=== PATIENT | male | born 1960 | race Caucasian/White ===

== ENCOUNTER 2017-06-15 17:39 | Emergency (ER) | payer OTHER ==
[~2017-06-15] VITALS: Ht 167.6 cm; Wt 59.0 kg
[2017-06-15] MEDS ORDERED: VERAPAMIL ER240 MG PO (18:02)
[2017-06-15] MEDS ORDERED: LISINOPRIL10 MG PO (18:02)
[2017-06-15] MEDS ORDERED: PRILOSEC OTC20 MG PO (18:02)
[2017-06-15] MEDS ORDERED: TRAMADOL HCL50 MG PO (19:27)
[2017-08-17] MEDS ORDERED: ACID CONTROL150 MG PO (23:08)
[2017-08-17] MEDS ORDERED: KETOROLAC TROME10 MG PO (23:10)
== END 2017-06-15 19:44 | disposition home or self-care (01) ==
LOC: ED 17:39
DX: S20.211A Contusion of right front wall of thorax, initial encounter (principal); J44.9 Chronic obstructive pulmonary disease, unspecified; I10 Essential (primary) hypertension; F17.200 Nicotine dependence, unspecified, uncomplicated; Z88.5 Allergy status to narcotic agent; Z79.899 Other long term (current) drug therapy; X58.XXXA Exposure to other specified factors, initial encounter
CPT/HCPCS: 71046; 99283

== ENCOUNTER 2017-06-21 11:16 | Emergency (ER) | payer OTHER ==
[~2017-06-21] VITALS: Ht 167.6 cm; Wt 59.0 kg
[~2017-06-21 11:16] MED LIST: LISINOPRIL10 MG PO; PRILOSEC OTC20 MG PO; TRAMADOL HCL50 MG PO; VERAPAMIL ER240 MG PO
[2017-06-21] MEDS ORDERED: SYMBICORT 16010.2 GM INH ×2 (11:32→12:25)
[2017-06-21] MEDS ORDERED: LISINOPRIL10 MG PO (12:25)
[2017-06-21] MEDS ORDERED: VERAPAMIL HCL360 MG PO (12:25)
[2017-08-17] MEDS ORDERED: ACID CONTROL150 MG PO (23:08)
[2017-08-17] MEDS ORDERED: KETOROLAC TROME10 MG PO (23:10)
== END 2017-06-21 12:55 | disposition home or self-care (01) ==
LOC: ED 11:16
DX: Z76.0 Encounter for issue of repeat prescription (principal); J44.9 Chronic obstructive pulmonary disease, unspecified; I10 Essential (primary) hypertension; F17.200 Nicotine dependence, unspecified, uncomplicated; Z88.5 Allergy status to narcotic agent; Z79.899 Other long term (current) drug therapy
CPT/HCPCS: 99283

== ENCOUNTER → 2017-08-17 | Emergency (ER) | payer OTHER ==
[~2017-08-17] VITALS: Ht 167.6 cm; Wt 59.0 kg
[~2017-08-17] MED LIST changes: +ACID CONTROL150 MG PO; +CLARITIN10 M2 PO; +KETOROLAC TROME10 MG PO; +SYMBICORT 16010.2 GM INH; +VERAPAMIL HCL360 MG PO
== END ==
LOC: ED 22:53
DX: M79.671 Pain in right foot (principal); M79.672 Pain in left foot; J44.9 Chronic obstructive pulmonary disease, unspecified; I10 Essential (primary) hypertension; F17.200 Nicotine dependence, unspecified, uncomplicated; Z88.5 Allergy status to narcotic agent; Z88.6 Allergy status to analgesic agent; Z79.899 Other long term (current) drug therapy
CPT/HCPCS: 96372; 99282; J1885

== ENCOUNTER 2017-08-29 22:49 | Emergency (ER) | payer OTHER ==
[~2017-08-29] VITALS: Ht 167.6 cm; Wt 59.0 kg
[~2017-08-29 22:49] MED LIST changes: -CLARITIN10 M2 PO
[2017-08-29] MEDS ORDERED: CLARITIN10 M2 PO (23:01)
== END 2017-08-30 00:47 | disposition home or self-care (01) ==
LOC: ED 22:49
DX: R42 Dizziness and giddiness (principal); J44.9 Chronic obstructive pulmonary disease, unspecified; I10 Essential (primary) hypertension; F17.200 Nicotine dependence, unspecified, uncomplicated; Z88.5 Allergy status to narcotic agent; Z79.899 Other long term (current) drug therapy
CPT/HCPCS: 70450; 71045; 80053; 81001; 85025; 99284; G0480; J7030

== ENCOUNTER 2018-04-09 21:59 | Emergency (ER) | payer OTHER ==
[~2018-04-09] VITALS: Ht 167.6 cm; Wt 61.2 kg
[~2018-04-09 21:59] MED LIST changes: +CLARITIN10 M2 PO
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
[2018-04-09] MEDS ORDERED: VENTOLIN HFA18 GM INH (23:21)
[2018-04-10] MEDS ORDERED: ACETAMINOPHEN-1 EAC1 PO (00:43)
[2018-04-10] MEDS ORDERED: TRAMADOL HCL50 MG PO (00:59)
== END 2018-04-10 01:10 | disposition home or self-care (01) ==
LOC: ED 21:59
DX: S70.12XA Contusion of left thigh, initial encounter (principal); V29.9XXA Motorcycle rider (driver) (passenger) injured in unspecified traffic accident, initial encounter; J44.9 Chronic obstructive pulmonary disease, unspecified; I10 Essential (primary) hypertension; F17.200 Nicotine dependence, unspecified, uncomplicated; Z88.5 Allergy status to narcotic agent; Z88.8 Allergy status to other drugs, medicaments and biological substances; Z79.899 Other long term (current) drug therapy
CPT/HCPCS: 73552; 99283

== ENCOUNTER 2018-04-22 05:25 | Emergency (ER) | payer OTHER ==
[~2018-04-22] VITALS: Ht 167.6 cm; Wt 65.8 kg
[~2018-04-22 05:25] MED LIST changes: +ACETAMINOPHEN-1 EAC1 PO; +VENTOLIN HFA18 GM INH
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
[2018-04-22] MEDS ORDERED: ALLEGRA ALLERG180 MG PO (05:33)
[2018-04-22] MEDS ORDERED: PREDNISONE20 MG PO (06:36)
== END 2018-04-22 07:05 | disposition home or self-care (01) ==
LOC: ED 05:25
DX: T78.3XXA Angioneurotic edema, initial encounter (principal); J44.9 Chronic obstructive pulmonary disease, unspecified; I10 Essential (primary) hypertension; F17.200 Nicotine dependence, unspecified, uncomplicated; Z88.5 Allergy status to narcotic agent; Z88.8 Allergy status to other drugs, medicaments and biological substances; Z79.899 Other long term (current) drug therapy
CPT/HCPCS: 96374; 96375; 99283-25; J1200; J2930

== ENCOUNTER 2018-07-31 12:23 | Emergency (ER) | payer OTHER ==
[~2018-07-31] VITALS: Ht 167.6 cm; Wt 65.8 kg
[~2018-07-31 12:23] MED LIST changes: +ALLEGRA ALLERG180 MG PO; +PREDNISONE20 MG PO
--- NOTE | 2018-07-31 22:42 | EKG ---
[facility] [address] [facility] [place] [address] Signed Normal sinus rhythm with sinus arrhythmia Normal ECG No previous ECGs available Confirmed by ITZ MOTT MD ([id number]) on 07/31/2018 10:42:24 PM Electronically Signed By: ITZ MOTT MD 07/31/18 2242 PATIENT NAME: ZITA REID SR Electrocardiogram DATE OF : 64 PHYSICIAN: ITZ MOTT MD REPORT #: [id number] REPORT IS CONFIDENTIAL AND NOT TO BE RELEASED WITHOUT AUTHORIZATION
== END 2018-07-31 15:00 | disposition home or self-care (01) ==
LOC: ED 12:23
DX: R45.89 Other symptoms and signs involving emotional state (principal); J44.9 Chronic obstructive pulmonary disease, unspecified; I10 Essential (primary) hypertension; F17.200 Nicotine dependence, unspecified, uncomplicated; Z88.5 Allergy status to narcotic agent; Z79.899 Other long term (current) drug therapy
CPT/HCPCS: 71045; 80053; 83735; 84484; 85025; 93005; 93010; 99284-25; 99406

== ENCOUNTER 2018-12-14 10:20 | Emergency (ER) | payer OTHER ==
[~2018-12-14] VITALS: Ht 167.6 cm; Wt 72.6 kg
[2018-12-14] MEDS ORDERED: LOSARTAN POTASS50 MG PO (10:45)
== END 2018-12-14 10:47 | disposition home or self-care (01) ==
LOC: ED 10:20
DX: R05 Cough (principal)

== ENCOUNTER 2019-10-11 20:46 | Emergency (ER) | payer BC ==
[~2019-10-11] VITALS: Ht 167.6 cm; Wt 72.6 kg
[~2019-10-11 20:46] MED LIST changes: +LOSARTAN POTASS50 MG PO
--- NOTE | 2019-10-12 12:07 | EKG ---
[facility] [address] [facility] [place], [place] [address] Signed Normal sinus rhythm with sinus arrhythmia Normal ECG When compared with ECG of 31-JUL-2018 13:16, No significant change was found Confirmed by DANIELLA SCOTT DO ([id number]) on 10/12/2019 12:07:29 PM Electronically Signed By: DANIELLA SCOTT DO 10/12/19 1207 PATIENT NAME: LISE REIDSarah DEE Electrocardiogram DATE OF : 64 PHYSICIAN: DANIELLA SCOTT DO REPORT #: [id number] REPORT IS CONFIDENTIAL AND NOT TO BE RELEASED WITHOUT AUTHORIZATION
== END 2019-10-11 23:54 | disposition home or self-care (01) ==
LOC: ED 20:46
DX: I10 Essential (primary) hypertension (principal); J44.9 Chronic obstructive pulmonary disease, unspecified; F17.200 Nicotine dependence, unspecified, uncomplicated; Z88.5 Allergy status to narcotic agent; Z88.6 Allergy status to analgesic agent; Z79.899 Other long term (current) drug therapy
CPT/HCPCS: 71045; 80053; 83735; 84484; 85025; 93005; 93010; 99284-25

== ENCOUNTER 2020-06-12 08:22 | Emergency (ER) | payer BC ==
[~2020-06-12] VITALS: Ht 167.6 cm; Wt 72.6 kg
[2020-06-12] MEDS ORDERED: AMLODIPINE BESYL5 MG PO (08:36)
[2020-06-12] MEDS ORDERED: HYDROCODON-ACE1 EA10 PO (09:46)
== END 2020-06-12 09:56 | disposition home or self-care (01) ==
LOC: ED 08:22
DX: S20.212A Contusion of left front wall of thorax, initial encounter (principal); W22.8XXA Striking against or struck by other objects, initial encounter; J44.9 Chronic obstructive pulmonary disease, unspecified; J45.909 Unspecified asthma, uncomplicated; I10 Essential (primary) hypertension; F17.200 Nicotine dependence, unspecified, uncomplicated; Z88.8 Allergy status to other drugs, medicaments and biological substances; Z88.5 Allergy status to narcotic agent; Z79.899 Other long term (current) drug therapy
CPT/HCPCS: 71101; 99283-25

== ENCOUNTER 2020-08-12 11:53 | Emergency (ER) | payer BC ==
[~2020-08-12] VITALS: Ht 167.6 cm; Wt 77.1 kg
[~2020-08-12 11:53] MED LIST changes: +AMLODIPINE BESYL5 MG PO; +HYDROCODON-ACE1 EA10 PO
[2020-08-12] MEDS ORDERED: VERAPAMIL ER180 MG PO (13:27)
[2020-08-12] MEDS ORDERED: HYDROCODON-ACE1 EA10 PO (13:35)
[2020-08-12] MEDS ORDERED: LIDODERM1 EACH TD (13:35)
== END 2020-08-12 13:53 | disposition home or self-care (01) ==
LOC: ED 11:53
DX: R07.89 Other chest pain (principal); J44.9 Chronic obstructive pulmonary disease, unspecified; I10 Essential (primary) hypertension; F17.200 Nicotine dependence, unspecified, uncomplicated; Z88.5 Allergy status to narcotic agent; Z88.8 Allergy status to other drugs, medicaments and biological substances; Z79.899 Other long term (current) drug therapy
CPT/HCPCS: 71101; 96372; 99284-25; J1885

== ENCOUNTER 2020-09-01 09:21 | Emergency (ER) | payer BC ==
[~2020-09-01] VITALS: Ht 167.6 cm; Wt 77.1 kg
[~2020-09-01 09:21] MED LIST changes: +LIDODERM1 EACH TD; +VERAPAMIL ER180 MG PO
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
[2020-09-01] MEDS ORDERED: PRILOSEC OTC20 MG PO (09:36)
[2020-09-01] MEDS ORDERED: HYDROCODON-ACE1 EA10 PO (11:18)
== END 2020-09-01 11:32 | disposition home or self-care (01) ==
LOC: ED 09:21
DX: S16.1XXA Strain of muscle, fascia and tendon at neck level, initial encounter (principal); S29.012A Strain of muscle and tendon of back wall of thorax, initial encounter; V49.9XXA Car occupant (driver) (passenger) injured in unspecified traffic accident, initial encounter; J44.9 Chronic obstructive pulmonary disease, unspecified; J45.909 Unspecified asthma, uncomplicated; I10 Essential (primary) hypertension; F17.200 Nicotine dependence, unspecified, uncomplicated; Z88.5 Allergy status to narcotic agent; Z88.8 Allergy status to other drugs, medicaments and biological substances; Z79.899 Other long term (current) drug therapy
CPT/HCPCS: 72040; 72070; 99284-25

== ENCOUNTER 2021-01-25 02:28 | Emergency (ER) | payer BC ==
[~2021-01-25] VITALS: Ht 167.6 cm; Wt 77.1 kg
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
[2021-01-25] MEDS ORDERED: AMLODIPINE BESY10 MG PO (02:40)
--- NOTE | 2021-01-25 20:02 | EKG ---
[facility] [address] [facility] [place], [place] [address] Signed Normal sinus rhythm Normal ECG When compared with ECG of 25-JAN-2021 02:32, (Unconfirmed) No significant change was found Confirmed by NANDO LOPES MD ([id number]) on 01/25/2021 8:02:32 PM Electronically Signed By: NANDO LOPES MD 01/25/212001 PATIENT NAME: ZITA REID Electrocardiogram DATE OF : 64 PHYSICIAN: NANDO LOPES MD REPORT #: [id number] REPORT IS CONFIDENTIAL AND NOT TO BE RELEASED WITHOUT AUTHORIZATION
--- NOTE | 2021-01-25 20:02 | EKG ---
[facility] [address] [facility] [place], [place] [address] Signed Normal sinus rhythm Nonspecific ST abnormality Abnormal ECG When compared with ECG of 11-OCT-2019 22:42, No significant change was found Confirmed by NANDO LOPES MD ([id number]) on 01/25/2021 8:02:04 PM Electronically Signed By: NANDO LOPES MD 01/25/212001 PATIENT NAME: JEANETTEZITASarah DEE Electrocardiogram DATE OF : 64 PHYSICIAN: NANDO LOPES MD REPORT #: [id number] REPORT IS CONFIDENTIAL AND NOT TO BE RELEASED WITHOUT AUTHORIZATION
== END 2021-01-25 06:26 | disposition home or self-care (01) ==
LOC: ED 02:28
DX: I10 Essential (primary) hypertension (principal); J44.9 Chronic obstructive pulmonary disease, unspecified; F17.200 Nicotine dependence, unspecified, uncomplicated; Z88.5 Allergy status to narcotic agent; Z88.8 Allergy status to other drugs, medicaments and biological substances; Z79.899 Other long term (current) drug therapy
CPT/HCPCS: 80053; 83735; 84484; 85025; 93005; 93010; 99283-25

== ENCOUNTER 2021-08-03 07:00 | Day surgery (SDC) | payer BC ==
[~2021-08-03] VITALS: Ht 167.6 cm; Wt 79.5 kg
[~2021-08-03 07:00] MED LIST changes: +AMLODIPINE BESY10 MG PO; +AVAPRO150 MG PO; +COZAAR50 MG PO; +EQ ALLERGY & S1 EACH PO; +FLONASE ALLERG9.9 ML NAS; +MEN'S 50 PLUS1 EACH PO
--- NOTE | 2021-08-03 09:30 | NUR ---
08/03/21 0930 Cass Peres 0915- PT TO PACU IN LL POSITION. EYES CLOSED. SNORING. JAW THRUST NEEDED TO PROMOTE ADEQUATE VENTILLATION. SPO2 >95% ON 6 L O2 VIA SIMPLE MASK. PT REACTIVE TO VERBAL AND TACTILE STIMULI. 0923- PT OPENS EYES TO VOICE AND FOLLOWS COMMANDS. BREATHING EASY AND UNLABORED WITHOUT JAW THRUST. SPO2 >95%. O2 TITRATED DOWN TO ROOM AIR. PT REPORTS 8/10 PAIN. PT ENCOURAGED TO PASS GAS AND EDUCATED ABOUT POC FOR PACU. 0930- PT REQUESTING TO SIT UP AND WALK. HOB ELEVATED. PT DENIES DIZZINESS OR NAUSEA. PT TALKING WITH MD AT BEDSIDE APPROPRIATELY. SPO2 >95% ON ROOM AIR. PT PASSING SOME GAS.
--- NOTE | 2021-08-04 06:04 | OR ---
[facility] [address] [place], [place] [address] Signed DATE OF OPERATION: 08/03/2021 SURGEON: Otto Parikh MD PREOPERATIVE DIAGNOSES: 1. Intermittent rectal bleeding after bowel movements. 2. Change in bowel habits with multiple loose stools. 3. Left lower quadrant pressure/pain. POSTOPERATIVE DIAGNOSES: 1. Moderate sigmoid diverticulosis. 2. Moderate internal and external hemorrhoids. PROCEDURE: Colonoscopy with random cold biopsies. ESTIMATED BLOOD LOSS: None. INDICATIONS: Zita is a 61-year-old gentleman asked to see me for followup colonoscopy. While living in [place], he underwent a colonoscopy in 2014, he was 53 years old. He has intermittent rectal bleeding, particularly when he wipes after bowel movements. He is now describing a change in bowel habits, multiple loose frequent stools in the morning. He goes to work at 3:00 p.m. and seems to do fine once he is cleaned out. He has no family history of colon cancer or polyps. He also describes some left lower quadrant pressure more so than pain. He has no family history of inflammatory bowel disease. In the office, I had given him a pamphlet on colonoscopy. He understands the nature of that test. There is risk including, but not limited to gas bloating, crampy abdominal pain, bleeding, perforation requiring surgery, and missed diagnosis. In addition, he has a history of tachycardia requiring verapamil while living in [place]. He is still on verapamil. He said he never went to see a fulfillment mail clerk. He continues to smoke marijuana each night after work to help relax. He is known to have COPD and a raspy voice. He also likes a few beers every day. In that regard, we did ask for an anesthesia provider to help us with increased monitoring and sedation with propofol. He had expressed understanding and wished to proceed. PROCEDURE NOTE: Zita was taken into our endoscopy suite and placed in the left lateral decubitus position. He was given monitored anesthesia care with propofol per our nurse Electronically Signed By: OTTO PARIKH MD 08/04/21 0604 PATIENT NAME: ZITA REID OPERATIVE REPORT DATE OF : 64 REPORT #: [id number] PHYSICIAN: OTTO PARIKH MD PCP: JERAD CASTANON MD REPORT IS CONFIDENTIAL AND NOT TO BE RELEASED WITHOUT AUTHORIZATION [facility] [address] [place], [place] [address] Signed site director. A digital rectal exam was performed and he does have small to moderate circumferential external hemorrhoids. He has good sphincter tone. His prostate is moderately indurated and mild to moderately enlarged. The adult colonoscope had been introduced and advanced all around into the cecum under direct visualization of the camera. It took some extra propofol as we traveled through the sigmoid colon. We found that he does have moderate sized diverticula in the sigmoid colon. They were moderate in size, moderate in number, and scattered about. Once we reached the cecum, we could easily see his appendiceal orifice and the ileocecal valve. We withdrawn the scope. Pictures were taken throughout for photodocumentation. We saw no inflammatory changes whatsoever throughout the entire colon. We took a couple of cold biopsies randomly in the colon for pathologic review. The rectum itself was unremarkable. Upon retroflexion of scope, he does have moderate beefy internal hemorrhoids. I am sure this is the source of his intermittent rectal bleeding. After this, the gas was suctioned out and colonoscope removed. Zita tolerated the procedure quite well. RECOMMENDATIONS: I will see Zita back in my office in 7 to 14 days to review his results. We will also review the diverticulosis and hemorrhoids. Otto Parikh MD ALB/MODL /[id number] cc: MD Otto Whelan MD Copies: OTTO PARIKH MD ~ Electronically Signed By: OTTO PARIKH MD 08/04/21 0604 PATIENT NAME: ZITA REID OPERATIVE REPORT DATE OF : 64 REPORT #: [id number] PHYSICIAN: OTTO PARIKH MD PCP: JERAD CASTANON MD REPORT IS CONFIDENTIAL AND NOT TO BE RELEASED WITHOUT AUTHORIZATION
--- NOTE | 2021-08-05 18:04 | PATH ---
[facility] [address] [place], [place] [address] Signed SPECIMEN(S): A RANDOM COLON BIOPSY SPECIMEN SOURCE: A. RANDOM COLON BIOPSY CLINICAL HISTORY: Colonoscopy. History of change in bowel habits, rectal bleeding. Post: Diverticulosis, internal/external hemorrhoids. FINAL PATHOLOGIC DIAGNOSIS: Colon, random, biopsy: - Intestinal spirochetosis. COMMENT: A Warthin-Starry stain (with appropriately staining controls) highlights spirochetes on the epithelial surface, supporting the above diagnosis. There is no active or chronic colitis. NAL:cml:C2NR MICROSCOPIC EXAMINATION: Histologic sections of all submitted blocks are examined by light microscopy. These findings, together with the gross examination, support the pathologic diagnosis. GROSS DESCRIPTION: The specimen, labeled "RR, random colon biopsy," is received in formalin and consists of two andrade soft tissue fragments that measure 0.2 cm in greatest dimension. The specimen is entirely submitted in cassette (A1). JS (under the direct supervision of a pathologist) The Gross Description was prepared using a voice recognition system. The report was reviewed for accuracy; however, sound-alike word errors, addition and/or deletions may occur. If there is any question about this report, please contact Client Services. ADDITIONAL NOTES: Immunohistochemical and/or in situ hybridization studies were performed on this case with the appropriate positive controls that react as expected. This test was developed and its performance characteristics determined by [facility]. It has not been cleared or approved by the U.S. Food and Drug Administration. The FDA has determined that PATIENT NAME: ZITA REID PATHOLOGY DATE OF : 64 REPORT #: [id number] PHYSICIAN: FELISA ANGEL PCP: JERAD CASTANON MD REPORT IS CONFIDENTIAL AND NOT TO BE RELEASED WITHOUT AUTHORIZATION [facility] [address] [place] [id number] Signed such clearance or approval is not necessary. This test is used for clinical purposes. It should not be regarded as investigational or for research. [facility] is certified under the Clinical Laboratory Improvement Amendments of 1988 (CLIA) as qualified to perform high complexity clinical laboratory testing. This assay has not been validated for specimens that have been decalcified. The technical component was performed by [facility], [address] [place] [address] (Presser Cotton Ginning: Shyam Hunt M.D.; CLIA#[id number]). [facility], [address] [place] [address] (CLIA# [id number]). PERFORMING LABORATORY: The technical component was performed by [facility], [address] [place] [address] (CLIA# [id number]). Professional interpretation [facility], [address] [place] [address] (CLIA# [id number]). Diagnostician: Vania Duncan MD Pathologist Electronically Signed 08/05/2021 Copies: ~ PATIENT NAME: ZITA REID PATHOLOGY DATE OF : 64 REPORT #: [id number] PHYSICIAN: FELISA PATHOLOGY PCP: JERAD CASTANON MD REPORT IS CONFIDENTIAL AND NOT TO BE RELEASED WITHOUT AUTHORIZATION
== END 2021-08-03 10:00 | disposition home or self-care (01) ==
LOC: DS 07:00 → OPS 07:00
PROVIDERS: ATTEND Colon & Rectal Surgery
PROC: 0DBG8ZX Excision of Left Large Intestine, Via Natural or Artificial Opening Endoscopic, Diagnostic (ICD-10-PCS; principal; 2021-08-03 09:00)
DX: A69.8 Other specified spirochetal infections (principal); K57.30 Diverticulosis of large intestine without perforation or abscess without bleeding; K64.8 Other hemorrhoids; K64.4 Residual hemorrhoidal skin tags; K21.9 Gastro-esophageal reflux disease without esophagitis; J44.9 Chronic obstructive pulmonary disease, unspecified; I47.1 Supraventricular tachycardia; I10 Essential (primary) hypertension; Z87.891 Personal history of nicotine dependence; Z88.6 Allergy status to analgesic agent; Z88.5 Allergy status to narcotic agent; Z88.8 Allergy status to other drugs, medicaments and biological substances
CPT/HCPCS: J2704; J7121

== ENCOUNTER 2021-10-30 17:05 | Emergency (ER) | payer BC ==
[~2021-10-30] VITALS: Ht 167.6 cm; Wt 79.4 kg
--- NOTE | ~2021-10-30 | EKG ---
[facility] [address] [facility] [place], [place] [address] Draft EK completed, results pending confirmation PATIENT NAME: JEANETTEZITA Electrocardiogram DATE OF : 64 PHYSICIAN: PRELIMINARY REPORT #: [id number] REPORT IS CONFIDENTIAL AND NOT TO BE RELEASED WITHOUT AUTHORIZATION
[2021-10-30] MEDS ORDERED: LOSARTAN-HCTZ1 EACH PO (17:25)
== END 2021-10-30 22:33 | disposition home or self-care (01) ==
LOC: ED 17:05
DX: I10 Essential (primary) hypertension (principal); M54.6 Pain in thoracic spine; J44.9 Chronic obstructive pulmonary disease, unspecified; J45.909 Unspecified asthma, uncomplicated; F17.200 Nicotine dependence, unspecified, uncomplicated; Z88.5 Allergy status to narcotic agent; Z88.8 Allergy status to other drugs, medicaments and biological substances; Z79.899 Other long term (current) drug therapy
CPT/HCPCS: 36415; 71045; 71275; 74174; 80053; 83735; 84484; 85025; 85610; 93005; 93010; 99285-25; Q9967

== ENCOUNTER 2022-01-21 20:58 | Emergency (ER) | payer BC ==
[~2022-01-21] VITALS: Ht 165.1 cm; Wt 76.0 kg
[~2022-01-21 20:58] MED LIST changes: +LOSARTAN-HCTZ1 EACH PO
[2022-01-21] MEDS ORDERED: CLONIDINE1 EAC1 TD (21:18)
[2022-01-21] MEDS ORDERED: CLONIDINE1 EAC2 TD (21:18)
[2022-01-21] MEDS ORDERED: AMOX TR-K CLV1 EAC1 PO (21:18)
[2022-01-21] MEDS ORDERED: PRILOSEC OTC20 MG PO (21:19)
--- NOTE | 2022-01-22 12:26 | EKG ---
[facility] [address] [facility] [place] [facility] [place], [place] [address] Signed Normal sinus rhythm Junctional ST depression, probably normal Borderline ECG When compared with ECG of 30-OCT-2021 17:11, No significant change was found Confirmed by NANDO LOPES MD ([id number]) on 01/22/2022 12:26:01 PM Electronically Signed By: NANDO LOPES MD 01/22/22 1226 PATIENT NAME: ZIAT REID Electrocardiogram DATE OF : 64 PHYSICIAN: NANDO LOPES MD REPORT #: [id number] REPORT IS CONFIDENTIAL AND NOT TO BE RELEASED WITHOUT AUTHORIZATION
== END 2022-01-21 22:07 | disposition home or self-care (01) ==
LOC: ED 20:58
DX: R07.89 Other chest pain (principal); I10 Essential (primary) hypertension; J44.9 Chronic obstructive pulmonary disease, unspecified; F17.200 Nicotine dependence, unspecified, uncomplicated; Z88.8 Allergy status to other drugs, medicaments and biological substances; Z88.5 Allergy status to narcotic agent; Z79.899 Other long term (current) drug therapy
CPT/HCPCS: 36415; 71045; 80053; 83735; 84484; 85025; 93005; 93010; 99285-25

== ENCOUNTER 2022-05-07 17:12 | Emergency (ER) | payer BC ==
[~2022-05-07] VITALS: Ht 165.1 cm; Wt 84.0 kg
[~2022-05-07 17:12] MED LIST changes: +AMOX TR-K CLV1 EAC1 PO; +CLONIDINE1 EAC1 TD; +CLONIDINE1 EAC2 TD
[2022-05-07] MEDS ORDERED: CLONIDINE HCL0.1 MG PO (17:29)
== END 2022-05-07 19:05 | disposition home or self-care (01) ==
LOC: ED 17:12
DX: I10 Essential (primary) hypertension (principal); J44.9 Chronic obstructive pulmonary disease, unspecified; F17.200 Nicotine dependence, unspecified, uncomplicated; Z88.5 Allergy status to narcotic agent; Z88.8 Allergy status to other drugs, medicaments and biological substances; Z79.899 Other long term (current) drug therapy
CPT/HCPCS: 99283

== ENCOUNTER 2022-05-13 18:53 | Emergency (ER) | payer BC ==
[~2022-05-13] VITALS: Ht 165.1 cm; Wt 83.9 kg
[~2022-05-13 18:53] MED LIST changes: +CLONIDINE HCL0.1 MG PO
--- OUTSIDE RECORDS SUMMARY | 2022-05-13 18:54 | XMS ---
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 - Patient with suicidal and/or homicidal ideations eloped. - Patient eloped with IV in place. Details: PATIENT LWBS CRITERIA MET - [facility] - 2 Visits in 30 Days CARE PROVIDERS ALLEN [facility] 01/26/2021-Current PHONE: Unknown KENJI WHEELER Physician Saw Handle Assembler 04/10/2018-Current PHONE: [phone] AUNDREA ALLISON [facility] Current PHONE: [phone] Fidelia has no Care Guidelines for this patient. Winifred VISIT COUNT (12 MO.) 5 NUPUR Banda TOTAL 5 NOTE: Visits indicate total known visits. ED/UCC VISIT TRACKING (12 MO.) 05/13/2022 18:53 [facility] [place] TYPE: Emergency COMPLAINT: - POSS HYPERTENSION 05/07/2022 17:12 [facility] [place] TYPE: Emergency COMPLAINT: - BLOOD PRESSURE PROBLEM DIAGNOSES: - Essential (primary) hypertension - Nicotine dependence, unspecified, uncomplicated - Chronic obstructive pulmonary disease, unspecified - Other terminal gauger (current) drug therapy - Allergy status to other drugs, medicaments and biological substances - Allergy status to narcotic agent 01/21/2022 20:59 [facility] [place] TYPE: Emergency COMPLAINT: - HIGH BLOOD PRESSURE DIAGNOSES: - Essential (primary) hypertension - Allergy status to narcotic agent - Chronic obstructive pulmonary disease, unspecified - Other residential (current) drug therapy - Other chest pain - Nicotine dependence, unspecified, uncomplicated - Allergy status to other drugs, medicaments and biological substances 10/31/2021 12:17 [facility] [place] TYPE: Emergency COMPLAINT: - HIGH B/P, DIZZY, SWEATING 10/30/2021 17:06 [facility] [place] TYPE: Emergency COMPLAINT: - HIGH BLOOD PRESSURE DIAGNOSES: - Allergy status to other drugs, medicaments and biological substances - Unspecified asthma, uncomplicated - Allergy status to narcotic agent - Essential (primary) hypertension - Nicotine dependence, unspecified, uncomplicated - Pain in thoracic spine - Other residential (current) drug therapy - Chronic obstructive pulmonary disease, unspecified INPATIENT VISIT TRACKING (12 MO.) No inpatient visits to display in this time frame [email or web address]
--- NOTE | 2022-05-14 22:03 | EKG ---
[facility] [address] [facility] [place] [address] Signed Sinus tachycardia Minimal voltage criteria for LVH, may be normal variant ( R in aVL ) Nonspecific ST abnormality Abnormal ECG No previous ECGs available Confirmed by Opal Uriostegui MD () on 05/14/2022 10:03:27 PM Electronically Signed By: OPAL URIOSTEGUI MD 05/14/222202 PATIENT NAME: JEANETTEZITASarah DEE Electrocardiogram DATE OF : 64 PHYSICIAN: OPAL URIOSTEGUI MD REPORT #: [id number] REPORT IS CONFIDENTIAL AND NOT TO BE RELEASED WITHOUT AUTHORIZATION
== END 2022-05-13 19:53 | disposition home or self-care (01) ==
LOC: ED 18:53
DX: I10 Essential (primary) hypertension (principal); J44.9 Chronic obstructive pulmonary disease, unspecified; F17.200 Nicotine dependence, unspecified, uncomplicated; Z88.5 Allergy status to narcotic agent; Z88.8 Allergy status to other drugs, medicaments and biological substances; Z79.899 Other long term (current) drug therapy
CPT/HCPCS: 93005; 93010; 99283-25

== ENCOUNTER 2022-05-16 12:37 | Emergency (ER) | payer BC ==
[~2022-05-16] VITALS: Ht 165.1 cm; Wt 78.0 kg
--- OUTSIDE RECORDS SUMMARY | 2022-05-16 12:46 | XMS ---
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 - Patient with suicidal and/or homicidal ideations eloped. - Patient eloped with IV in place. Details: PATIENT LWBS CRITERIA MET - [facility] - 2 Visits in 30 Days CARE PROVIDERS ALLEN [facility] 01/26/2021-Current PHONE: Unknown KENJI WHEELER Physician Classified Ad Taker 04/10/2018-Current PHONE: [phone] AUNDREA ALLISON [facility] Current PHONE: [phone] Fidelia has no Care Guidelines for this patient. Winifred VISIT COUNT (12 MO.) 6 NUP[facility] Banda TOTAL 6 NOTE: Visits indicate total known visits. ED/UCC VISIT TRACKING (12 MO.) 05/16/2022 12:37 [facility] [place] TYPE: Emergency COMPLAINT: - BLOOD PRESSURE PROBLEM 05/13/2022 18:53 [facility] [place] HKlaudia [place] TYPE: Emergency COMPLAINT: - POSS HYPERTENSION DIAGNOSES: - Allergy status to narcotic agent - Essential (primary) hypertension - Allergy status to other drugs, medicaments and biological substances - Chronic obstructive pulmonary disease, unspecified - Nicotine dependence, unspecified, uncomplicated - Other mcfp (current) drug therapy 05/07/2022 17:12 [facility] [place] Tat[place] TYPE: Emergency COMPLAINT: - BLOOD PRESSURE PROBLEM DIAGNOSES: - 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 10/31/2021 12:17 [facility] [place] TYPE: Emergency COMPLAINT: - HIGH B/P, DIZZY, SWEATING 10/30/2021 17:06 [facility] [place] TYPE: Emergency COMPLAINT: - HIGH BLOOD PRESSURE DIAGNOSES: - Nicotine dependence, unspecified, uncomplicated - Pain in thoracic spine - 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
--- NOTE | 2022-05-16 21:49 | EKG ---
[facility] [address] [place] [address] Signed Normal sinus rhythm Nonspecific T wave abnormality Abnormal ECG When compared with ECG of 13-MAY-2022 18:53, Questionable change in QRS axis ST no longer depressed in Anterior leads Nonspecific T wave abnormality, worse in Inferior leads Confirmed by Opal Uriostegui MD () on 05/16/2022 9:49:37 PM Electronically Signed By: OPAL URIOSTEGUI MD 05/16/22 2149 PATIENT NAME: ZITA REID Electrocardiogram DATE OF : 64 PHYSICIAN: OPAL URIOSTEGUI MD REPORT #: [id number] REPORT IS CONFIDENTIAL AND NOT TO BE RELEASED WITHOUT AUTHORIZATION
== END 2022-05-16 15:46 | disposition home or self-care (01) ==
LOC: ED 12:37
DX: I10 Essential (primary) hypertension (principal); J44.9 Chronic obstructive pulmonary disease, unspecified; F17.200 Nicotine dependence, unspecified, uncomplicated; Z88.5 Allergy status to narcotic agent; Z88.8 Allergy status to other drugs, medicaments and biological substances; Z79.899 Other long term (current) drug therapy
CPT/HCPCS: 36415; 71045; 80053; 83735; 84484; 85025; 93005; 93010; 99285-25

== ENCOUNTER 2022-05-22 01:48 | Emergency (ER) | payer BC ==
[~2022-05-22] VITALS: Ht 165.1 cm; Wt 77.6 kg
--- OUTSIDE RECORDS SUMMARY | 2022-05-22 01:50 | XMS ---
PreManage Notification: ZITA REID Security Vp Events 1 event(s) in the past 18 months Most recent security events: Elopement at [facility] 10/31/2021 12:17 - Patient eloped before treatment completed. - Patient with suicidal and/or homicidal ideations eloped. - Patient eloped with IV in place. Details: PATIENT LWBS CRITERIA MET - [facility] - 2 Visits in 30 Days CARE PROVIDERS ALLEN [facility] 01/26/2021-Current PHONE: Unknown KENJI WHEELER Physician Financial Cost Analyst 04/10/2018-Current PHONE: [phone] AUNDREA ALLISON [facility] Current PHONE: [phone] Fidelia has no Care Guidelines for this patient. Winifred VISIT COUNT (12 MO.) 7 NUPUR Banda TOTAL 7 NOTE: Visits indicate total known visits. ED/UCC VISIT TRACKING (12 MO.) 05/22/2022 01:49 [facility] [place] TYPE: Emergency COMPLAINT: - HEART ISSUE 05/16/2022 12:37 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 [place] TYPE: Emergency COMPLAINT: - POSS HYPERTENSION DIAGNOSES: - Nicotine dependence, unspecified, uncomplicated - Other senior living (current) drug therapy - Allergy status to narcotic agent - Essential (primary) hypertension - Allergy status to other drugs, medicaments and biological substances - Chronic obstructive pulmonary disease, unspecified 05/07/2022 17:12 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 - Allergy status to other drugs, medicaments and biological substances - Allergy status to narcotic agent - Essential (primary) hypertension 01/21/2022 20:59 [facility] [place]laudia [place] TYPE: Emergency COMPLAINT: - HIGH BLOOD PRESSURE DIAGNOSES: - Allergy status to narcotic agent - Chronic obstructive pulmonary disease, unspecified - Other senior living (current) drug therapy - Other chest pain - Nicotine dependence, unspecified, uncomplicated - Allergy status to other drugs, medicaments and biological substances - Essential (primary) hypertension 10/31/2021 12:17 [facility] [place] TYPE: Emergency COMPLAINT: - HIGH B/P, DIZZY, SWEATING 10/30/2021 17:06 [facility] [place] TYPE: Emergency COMPLAINT: - HIGH BLOOD PRESSURE DIAGNOSES: - Unspecified asthma, uncomplicated - Allergy status to narcotic agent - Essential (primary) hypertension - Nicotine dependence, unspecified, uncomplicated - Pain in thoracic spine - Other senior living (current) drug therapy - Chronic obstructive pulmonary disease, unspecified - Allergy status to other drugs, medicaments and biological substances INPATIENT VISIT TRACKING (12 MO.) No inpatient visits to display in this time frame [email or web address]
[2022-05-22] MEDS ORDERED: HYDROXYZINE HCL25 MG PO (01:57)
[2022-05-22] MEDS ORDERED: METOPROLOL SUCC50 MG PO (01:57)
[2022-05-22] MEDS ORDERED: VERAPAMIL ER240 M1 PO (01:59)
[2022-05-22] MEDS ORDERED: HYZAAR 100-251 EACH PO (02:00)
[2022-05-22] MEDS ORDERED: ATIVAN1 MG PO (02:27)
--- NOTE | 2022-05-22 07:54 | EKG ---
[facility] [address] [place] [address] Signed Sinus rhythm with occasional premature ventricular complexes Nonspecific ST abnormality Abnormal ECG When compared with ECG of 16-MAY-2022 12:48, premature ventricular complexes are now present ST more depressed in Lateral leads Nonspecific T wave abnormality, improved in Inferior leads Nonspecific T wave abnormality no longer evident in Lateral leads Confirmed by NANDO LOPES MD ([id number]) on 05/22/2022 7:54:04 AM Electronically Signed By: NANDO LOPES MD 05/22/22 0754 PATIENT NAME: ZITA REID Electrocardiogram DATE OF : 64 PHYSICIAN: NANDO LOPES MD REPORT #: [id number] REPORT IS CONFIDENTIAL AND NOT TO BE RELEASED WITHOUT AUTHORIZATION
== END 2022-05-22 03:15 | disposition home or self-care (01) ==
LOC: ED 01:48
DX: R00.2 Palpitations (principal); E83.42 Hypomagnesemia; J44.9 Chronic obstructive pulmonary disease, unspecified; I10 Essential (primary) hypertension; F17.200 Nicotine dependence, unspecified, uncomplicated; Z88.5 Allergy status to narcotic agent; Z88.8 Allergy status to other drugs, medicaments and biological substances; Z79.899 Other long term (current) drug therapy
CPT/HCPCS: 36415; 80053; 83735; 85025; 93005; 93010; 96365; 96375; 99285-25; J2060; J3475; J7121

== ENCOUNTER 2023-04-14 20:09 | Emergency (ER) | payer OTHER ==
[~2023-04-14] VITALS: Ht 165.1 cm; Wt 85.6 kg
[~2023-04-14 20:09] MED LIST changes: +ATIVAN1 MG PO; +FLOMAX0.4 MG PO; +HYDROXYZINE HCL25 MG PO; +HYZAAR 100-251 EACH PO; +METOPROLOL SUCC50 MG PO; +PROBIOTIC1 EAC2 PO; +ROSUVASTATIN CA20 MG PO; +TYLENOL EXTRA500 MG PO; +VASCEPA1 GM PO; +VERAPAMIL ER240 M1 PO
--- OUTSIDE RECORDS SUMMARY | 2023-04-14 20:16 | XMS ---
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 - Patient eloped before treatment completed. - Patient with suicidal and/or homicidal ideations eloped. Details: PATIENT LWBS CRITERIA MET - [facility] - 2 Visits in 30 Days CARE PROVIDERS ALLEN [facility] 01/26/2021-Current PHONE: Unknown KENJI WHEELER Physician Rn Nursery 04/10/2018-Current PHONE: [phone] -[place]- Dentist: Deposition Reporter [facility] PHONE: [phone] Fidelia has no Care Guidelines for this patient. Winifred VISIT COUNT (12 MO.) 6 NUPUR Banda TOTAL 6 NOTE: Visits indicate total known visits. ED/UCC VISIT TRACKING (12 MO.) 04/14/2023 20:09 [facility] [place] TYPE: Emergency COMPLAINT: - FLANK PAIN 04/09/2023 17:47 [facility] [place] TYPE: Emergency COMPLAINT: - BLOOD IN URINE DIAGNOSES: - Allergy status to analgesic agent - Allergy status to narcotic agent - Allergy status to other drugs, medicaments and biological substances - Chronic obstructive pulmonary disease, unspecified - Essential (primary) hypertension - Gastro-esophageal reflux disease without esophagitis - Hematuria, unspecified - Hydronephrosis with renal and ureteral calculous obstruction - Hyperlipidemia, unspecified - Nicotine dependence, unspecified, uncomplicated - Other detention (current) drug therapy 05/22/2022 01:49 [facility] [place] TYPE: Emergency COMPLAINT: - HEART ISSUE DIAGNOSES: - Allergy status to narcotic agent - Allergy status to other drugs, medicaments and biological substances - Chronic obstructive pulmonary disease, unspecified - Essential (primary) hypertension - Hypomagnesemia - Nicotine dependence, unspecified, uncomplicated - Other detention (current) drug therapy - Palpitations 05/16/2022 12:37 [facility] [place] TYPE: Emergency COMPLAINT: - BLOOD PRESSURE PROBLEM DIAGNOSES: - Allergy status to narcotic agent - Allergy status to other drugs, medicaments and biological substances - Chest pain, unspecified - Chronic obstructive pulmonary disease, unspecified - Essential (primary) hypertension - Nicotine dependence, unspecified, uncomplicated - Other detention (current) drug therapy 05/13/2022 18:53 [facility] [place] TYPE: Emergency COMPLAINT: - POSS HYPERTENSION DIAGNOSES: - Allergy status to narcotic agent - Allergy status to other drugs, medicaments and biological substances - Chronic obstructive pulmonary disease, unspecified - Essential (primary) hypertension - Nicotine dependence, unspecified, uncomplicated - 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
[2023-04-14 20:42] LABS: BASOPHILS 0.5 % (0-2); HEMATOCRIT 41.7 % (35.0-50.0); HEMOGLOBIN 14.7 g/dL (12.0-18.0); LYMPHOCYTES 19.8 % (24-44); MCH 32.6 (27-36); MCHC 35.2 g/dl (30-36); MCV 92.5 fl (81-99); MONOCYTES 9.4 % (0-12); NEUTROPHILS 68.3 % (39-80); PLATELET COUNT 302 K/uL (140-440); RBC 4.51 M/ul (4.3-5.7); RDW 12.9 (10.5-15.0)
[2023-04-14 20:50] LABS: ALBUMIN/GLOBULIN RATIO 0.91 (1.1-2.4); ANION GAP 15.6 (7-21); BILIRUBIN, TOTAL 0.4 ng/dL (0.2-1.0); BUN/CREATININE RATIO 18.05 (6.0-28.6); CALCIUM 9.6 mg/dL (8.5-10.1); CREATININE, SERUM 1.44 mg/dL (0.70-1.30); POTASSIUM 3.6 mmol/L (3.5-5.1); PROTEIN, TOTAL 8.4 g/dL (6.4-8.2)
[2023-04-14 21:20] LABS: BILIRUBIN, URINE NEGATIVE (negative); BLOOD/HGB, URINE NEGATIVE (Negative); KETONE, URINE NEGATIVE (Negative); LEUK ESTERASE, URINE NEGATIVE (negative); NITRITE, URINE NEGATIVE (negative); PH, URINE 5.5 (5-7)
[2023-04-14] MEDS ORDERED: ONDANSETRON ODT8 MG PO (21:26)
[2023-04-14] MEDS ORDERED: PERCOCET 5-3251 EACH PO (21:26)
[2023-04-14] MEDS ORDERED: CIPRO500 MG PO (21:26)
[2023-04-14] MEDS ORDERED: COLACE100 MG PO (21:28)
[2023-04-14 21:52] VITALS: BP 159/89
== END 2023-04-14 21:56 | disposition home or self-care (01) ==
LOC: ED 20:09
PROVIDERS: Family Medicine
DX: N13.2 Hydronephrosis with renal and ureteral calculous obstruction (principal); J44.9 Chronic obstructive pulmonary disease, unspecified; I10 Essential (primary) hypertension; F17.200 Nicotine dependence, unspecified, uncomplicated; Z88.5 Allergy status to narcotic agent; Z88.6 Allergy status to analgesic agent; Z88.8 Allergy status to other drugs, medicaments and biological substances; Z79.899 Other long term (current) drug therapy
CPT/HCPCS: 36415; 74176; 80053; 81003; 85025; 96374; 99284-25; A9270; J1885; J7030

== ENCOUNTER 2025-01-02 13:30 | Emergency (ER) | payer OTHER ==
[~2025-01-02] VITALS: Ht 167.6 cm; Wt 74.2 kg
--- NOTE | ~2025-01-02 | EKG ---
[facility] [address] [place], [place] [address] Draft EKG completed, results pending confirmation PATIENT NAME: ZITA REID Electrocardiogram DATE OF : 64 PHYSICIAN: PRELIMINARY REPORT #: [id number] REPORT IS CONFIDENTIAL AND NOT TO BE RELEASED WITHOUT AUTHORIZATION
[~2025-01-02 13:30] MED LIST changes: +CIPRO500 MG PO; +COLACE100 MG PO; +ONDANSETRON ODT8 MG PO; +PERCOCET 5-3251 EACH PO
[2025-01-02] MEDS ORDERED: TREXALL15 MG PO (13:58)
[2025-01-02] MEDS ORDERED: SODIUM CHLORIDE 0.9% 500 ML IV ONE (14:00)
[2025-01-02 14:24] LABS: BASOPHILS 0.2 % (0.2-1.2); EOSINOPHILS 0.2 % (0.8-7.0); LYMPHOCYTES 1.5 % (21.8-53.1); MCH 32.2 PG (25.7-32.2); MCHC 34.2 g/dL (32.3-36.5); MCV 94.2 fL (79.0-92.2); MONOCYTES 2.5 % (5.3-12.2); NEUTROPHILS 95.3 % (34.0-67.9); RBC 4.66 M/uL (4.63-6.08)
[2025-01-02] MEDS ORDERED: DIPHENOXYLATE/ATROPINE 1 EA TAB PO ONE ×2 (14:30→16:30)
[2025-01-02] MEDS ORDERED: SODIUM CHLORIDE 0.9% 1,000 ML IV ONE (14:30)
[2025-01-02 14:39] LABS: ALT (SGPT) 34.0 U/L (14-59); AST (SGOT) 25.0 U/L (15-37); GLOMERULAR FILTRATION RATE,EST 109.0 mL/min (>60); PROTEIN, TOTAL 7.1 g/dL (6.4-8.2); UREA NITROGEN 18.0 mg/dL (7-18)
[2025-01-02] MEDS ORDERED: MAGNESIUM OXIDE 400 MG TABLET PO ONE (16:30)
[2025-01-02] MEDS ORDERED: POTASSIUM CHLORIDE 10 MEQ TABCR PO ONE (16:30)
[2025-01-02] MEDS ORDERED: MAGNESIUM SULFATE 2 GM/50 ML BAG IV ONE (16:30)
[2025-01-02 16:34] LABS: BLOOD/HGB, URINE NEGATIVE (Negative); KETONE, URINE NEGATIVE (Negative); LEUK ESTERASE, URINE NEGATIVE (negative); NITRITE, URINE NEGATIVE (negative)
[2025-01-02 19:22] VITALS: BP 169/100
== END 2025-01-02 19:23 | disposition home or self-care (01) ==
LOC: ED 13:30
PROVIDERS: Emergency Medicine
DX: R19.7 Diarrhea, unspecified (principal); E83.42 Hypomagnesemia; E87.1 Hypo-osmolality and hyponatremia; J44.89 Other specified chronic obstructive pulmonary disease; I10 Essential (primary) hypertension; F17.200 Nicotine dependence, unspecified, uncomplicated; Z88.5 Allergy status to narcotic agent; Z88.8 Allergy status to other drugs, medicaments and biological substances; Z88.6 Allergy status to analgesic agent; Z79.899 Other long term (current) drug therapy
CPT/HCPCS: 36415; 80053; 81003; 83735; 85025; 93005; 93010; 96361; 96365; 96366; 96375; 99284-25; A9270; J2405; J3475; J7030; J7040

== ENCOUNTER 2025-01-17 22:01 | Emergency (ER) | payer OTHER ==
[~2025-01-17] VITALS: Ht 167.6 cm; Wt 71.6 kg
--- NOTE | ~2025-01-17 | EKG ---
[facility] [address] [place], [place] [address] Draft EK completed, results pending confirmation PATIENT NAME: ZITA REID Electrocardiogram DATE OF : 64 PHYSICIAN: PRELIMINARY REPORT #: [id number] REPORT IS CONFIDENTIAL AND NOT TO BE RELEASED WITHOUT AUTHORIZATION
--- OUTSIDE RECORDS SUMMARY | ~2025-01-17 | XMS | Continuity of Care Document ---
Demographics + + + | Address | [address] | | | [place] [address] | + + + | Preferred Language | Unknown | + + + | Marital Status | Never | + + + | Yazidi Affiliation | Unknown | + + + | Race | White | + + + | Ethnic Group | Not or | + + + Author + + + | Author | [facility] | + + + | Organization | [facility] | + + + | Address | [address] | | | [place] [address] | + + + | Phone | | + + + Care Team Providers + + + + | Care Security Systems Administrator Name | Role | Phone | + + + + Unavailable | Unavailable | + + + + Unavailable | Unavailable | + + + + Allergies No information. Encounters No information. Functional Status No information. Immunizations No information. Medications + + + + | date | description | facility | + + + + | (no date) | ICOSAPENT ETHYL | [facility] | | | | [facility] | + + + + | (no date) | RANITIDINE HCL | [facility] | | | | [facility] | + + + + | (no date) | ACETAMINOPHEN | [facility] | | | | [facility] | + + + + | (no date) | METHOTREXATE SODIUM | [facility] | | | | [facility] | + + + + | (no date) | AMLODIPINE BESYLATE | [facility] | | | | [facility] | + + + + | (no date) | LISINOPRIL | [facility] | | | | [facility] | + + + + | (no date) | OMEPRAZOLE MAGNESIUM | [facility] | | | | [facility] | + + + + | (no date) | LORATADINE | [facility] | | | | [facility] | + + + + | (no date) | ALBUTEROL SULFATE | [facility] | | | | [facility] | + + + + | (no date) | Rosuvastatin Calcium | [facility] | | | | [facility] | + + + + | (no date) | METOPROLOL SUCCINATE | [facility] | | | | [facility] | + + + + | (no date) | CLONIDINE HCL | [facility] | | | | [facility] | + + + + | (no date) | VERAPAMIL HCL | [facility] | | | | [facility] | + + + + | (no date) | VERAPAMIL HCL | [facility] | | | | [facility] | + + + + | (no date) | | [facility] | | | LOSARTAN/HYDROCHLOROTHIAZID | [facility] | | | E | | + + + + | (no date) | hydrOXYzine HCL | [facility] | | | | [facility] | + + + + Problems No information. Procedures No information. Results/Labs +--------+--------+ +---------+--------+---------+ | test | date | facility | value | unit | notes | +--------+--------+ +---------+--------+---------+ + + | Result panel 1 | + + + + + +---------+ + + | WBC # Bld | 2025-01-02 | | 10.15 | (missing) | (missing) | | Auto | 14:20:07 | [facility] | | | | + + + +---------+ + + + + | Result panel 2 | + + + + + +-------+ + + | Lymphocytes | 2025-01-02 | | 1.5 | (missing) | (missing) | | NFr Bld | 14:20:07 | [facility] | | | | | Auto | [facility] | | | | + + + +-------+ + + + + | Result panel 3 | + + + + + +-------+ + + | Monocytes | 2025-01-02 | | 2.5 | (missing) | (missing) | | NFr Bld Auto | 14:20:07 | [facility] | | | | + + + +-------+ + + + + | Result panel 4 | + + + + + +-------+ + + | Eosinophil | 2025-01-02 | | 0.2 | (missing) | (missing) | | NFr Bld Auto | 14:20:07 | [facility] | | | | + + + +-------+ + + + + | Result panel 5 | + + + + + +-------+ + + | Basophils | 2025-01-02 | | 0.2 | (missing) | (missing) | | NFr Bld Auto | 14:20:07 | [facility] | | | | | | | - | | | | | | [facility] | | | | + + + +-------+ + + + + | Result panel 6 | + + + + + +--------+ + + | RBC # Bld | 2025-01-02 | | 4.66 | (missing) | (missing) | | Auto | 14:20:07 | [facility] | | | | + + + +--------+ + + + + | Result panel 7 | + + + + + +-------+---------+ + | Glucose | 2025-01-02 | | 130 | mg/dL | (missing) | | SerPl-mCnc | 14:20:07 | [facility] | | | | + + + +-------+---------+ + + + | Result panel 8 | + + + + + +------+---------+ + | BUN | 2025-01-02 | | 18 | mg/dL | (missing) | | SerPl-mCnc | 14:20:07 | [facility] | | | | + + + +------+---------+ + + + | Result panel 9 | + + + + + +--------+---------+ + | Creat | 2025-01-02 | | 0.60 | mg/dL | (missing) | | SerPl-mCnc | 14:20:07 | [facility] | | | | + + + +--------+---------+ + + + | Result panel 10 | + + + + + +-------+ + + | eGFRcr | 2025-01-02 | | 109 | (missing) | (missing) | | SerPlBld | 14:20:07 | [facility] | | | | | CKD-EPI 2020 | [facility] | | | | + + + +-------+ + + + + | Result panel 11 | + + + + + +--------+ + + | Hgb | 2025-01-02 | | 15.0 | (missing) | (missing) | | Bld-Delgado | 14:20:07 | [facility] | | | [facility] | | | | + + + +--------+ + + + + | Result panel 12 | + + + + + +---------+ + + | BUN/Creat | 2025-01-02 | | 30.00 | (missing) | (missing) | | SerPl | 14:20:07 | [facility] | | | | + + + +---------+ + + + + | Result panel 13 | + + + + + +-------+ + + | Sodium | 2025-01-02 | | 135 | (missing) | (missing) | | SerPl-[facility] | 14:20:07 | [facility] | | | | + + + +-------+ + + + + | Result panel 14 | + + + + + +-------+ + + | Potassium | 2025-01-02 | | 3.1 | (missing) | (missing) | | SerPl-sCnc | 14:20:07 | [facility] | | | | + + + +-------+ + + + + | Result panel 15 | + + + + + +------+ + + | Chloride | 2025-01-02 | | 99 | (missing) | (missing) | | SerPl-sCnc | 14:20:07 | [facility] | [facility] | | | | + + + +------+ + + + + | Result panel 16 | + + + + + +------+ + + | CO2 | 2025-01-02 | | 24 | (missing) | (missing) | | SerPl-sCnc | 14:20:07 | [facility] | | | | + + + +------+ + + + + | Result panel 17 | + + + + + +--------+ + + | Anion Gap | 2025-01-02 | | 15.1 | (missing) | (missing) | | SerPl | 14:20:07 | [facility] | | | | | Calculated.4 | [facility] Ions-sCnc [facility] | | | | + + + +--------+ + + + + | Result panel 18 | + + + + + +-------+---------+ + | Calcium | 2025-01-02 | | 8.5 | mg/dL | (missing) | | SerPl-mCnc | 14:20:07 | [facility] | | | | + + + +-------+---------+ + + + | Result panel 19 | + + + + + +-------+---------+ + | Magnesium | 2025-01-02 | | 1.4 | mg/dL | (missing) | | SerPl-mCnc | 14:20:07 | [facility] | | | | + + + +-------+---------+ + + + | Result panel 20 | + + + + + +-------+ + + | Prot | 2025-01-02 | | 7.1 | (missing) | (missing) | | aAron-Delgado | 14:20:07 | [facility] | | | | + + + +-------+ + + + + | Result panel 21 | + + + + + +-------+ + + | Albumin | 2025-01-02 | | 3.9 | (missing) | (missing) | | SerPl-Delgado | 14:20:07 | [facility] | | | | + + + +-------+ + + + + | Result panel 22 | + + + + + +--------+ + + | Hct VFr.DF | 2025-01-02 | | 43.9 | (missing) | (missing) | | Bld Auto | 14:20:07 | [facility] | | | | + + + +--------+ + + + + | Result panel 23 | + + + + + +-------+ + + | Globulin | 2025-01-02 | | 3.2 | (missing) | (missing) | | Ser-mCnc | 14:20:07 | [facility] | | | | + + + +-------+ + + + + | Result panel 24 | + + + + + +--------+ + + | | 2025-01-02 | | 1.22 | (missing) | (missing) | | Albumin/Glob | 14:20:07 | [facility] | | | | | SerPl | [facility] | | | | + + + +--------+ + + + + | Result panel 25 | + + + + + +-------+---------+ + | Bilirub | 2025-01-02 | | 0.9 | mg/dL | (missing) | | SerPl-mCnc | 14:20:07 | [facility] | | | | + + + +-------+---------+ + + + | Result panel 26 | + + + + + +------+ + + | AST | 2025-01-02 | | 25 | (missing) | (missing) | | SerPl-cCnc | 14:20:07 | [facility] | | | | + + + +------+ + + + + | Result panel 27 | + + + + + +------+ + + | ALT | 2025-01-02 | | 34 | (missing) | (missing) | | SerPl-cCnc | 14:20:07 | [facility] | | | | + + + +------+ + + + + | Result panel 28 | + + + + + +------+ + + | ALP | 2025-01-02 | | 82 | (missing) | (missing) | | SerPl-cCnc | 14:20:07 | [facility] | | | | + + + +------+ + + + + | Result panel 29 | + + + + + +--------+ + + | RBC Auto | 2025-01-02 | | 94.2 | (missing) | (missing) | | | 14:20:07 | [facility] | | | | + + + +--------+ + + + + | Result panel 30 | + + + + + +--------+ + + | MCH RBC Qn | 2025-01-02 | | 32.2 | (missing) | (missing) | | Auto | 14:20:07 | [facility] | | | | + + + +--------+ + + + + | Result panel 31 | + + + + + +--------+ + + | MCHC RBC | 2025-01-02 | | 34.2 | (missing) | (missing) | | Auto-EntMCnc | 14:20:07 | [facility] | | | | + + + +--------+ + + + + | Result panel 32 | + + + + + +-------+ + + | Platelet # | 2025-01-02 | | 244 | (missing) | (missing) | | Bld Auto | 14:20:07 | [facility] | | | | + + + +-------+ + + + + | Result panel 33 | + + + + + +--------+ + + | Neutrophils | 2025-01-02 | | 95.3 | (missing) | (missing) | | NFr Bld | 14:20:07 | [facility] | | | | | Auto | [facility] | | | | + + + +--------+ + + + + | Result panel 34 | + + + + + + + + + | Color Ur | 2025-01-02 | | YELLOW | (missing) | (missing) | | Auto | 16:27:07 | [facility] | | | | + + + + + + + + + | Result panel 35 | + + + + + +---------+ + + | Character | 2025-01-02 | | CLEAR | (missing) | (missing) | | Ur | 16:27:07 | [facility] | | | | + + + +---------+ + + + + | Result panel 36 | + + + + + + + + + | Glucose Ur | 2025-01-02 | | NEGATIVE | (missing) | (missing) | | Ql Strip | 16:27:07 | [facility] | | | | + + + + + + + + + | Result panel 37 | + + + + + + + + + | Bilirub Ur | 2025-01-02 | | NEGATIVE | (missing) | (missing) | | Ql Strip | 16:27:07 | [facility] | | | | + + + + + + + + + | Result panel 38 | + + + + + + + + + | Giorgio Cannon | 2025-01-02 | | NEGATIVE | (missing) | (missing) | | Ql Strip | 16:27:07 | [facility] | | | | + + + + + + + + + | Result panel 39 | + + + + + +---------+ + + | Arben Cannon | 2025-01-02 | | 1.025 | (missing) | (missing) | | Strip | 16:27:07 | [facility] | | | | + + + +---------+ + + + + | Result panel 40 | + + + + + + + + + | Hgb Ur Ql | 2025-01-02 | | NEGATIVE | (missing) | (missing) | | Strip | 16:27:07 | [facility] | | | | + + + + + + + + + | Result panel 41 | + + + + + +-------+ + + | pH Ur Strip | 2025-01-02 | | 5.0 | (missing) | (missing) | | | 16:27:07 | [facility] | | | | + + + +-------+ + + + + | Result panel 42 | + + + + + + + + + | Prot Ur | 2025-01-02 | | NEGATIVE | (missing) | (missing) | | Strip-mCnc | 16:27:07 | [facility] | | | | + + + + + + + + + | Result panel 43 | + + + + + + + + + | | 2025-01-02 | | NORMAL | (missing) | (missing) | | Urobilinogen | 16:27:07 | [facility] | | | | | Ur | [facility] | | | | + + + + + + + + + | Result panel 44 | + + + + + + + + + | Nitrite Ur | 2025-01-02 | | NEGATIVE | (missing) | (missing) | | Ql Strip | 16:27:07 | [facility] | | | | + + + + + + + + + | Result panel 45 | + + + + + + + + + | Leukocyte | 2025-01-02 | | NEGATIVE | (missing) | (missing) | | esterase Ur | 16:27:07 | [facility] | | | | | Ql Strip | [facility] | | | | + + + + + + + Social History +--------+ + + | date | description | facility | +--------+ + + Vital Signs + + + +---------+ | date | measurement | value | units | + + + +---------+ | 2025-01-02 00:00 | BMI | 26.4 | kg/m2 | + + + +---------+ | 2025-01-02 00:00 | BP_diastolic | 100 | mmHg | + + + +---------+ | 2025-01-02 00:00 | BP_systolic | 169 | mmHg | + + + +---------+ | 2025-01-02 00:00 | heart_rate | 67 | /min | + + + +---------+ | 2025-01-02 00:00 | height_metric | 167.64 | cm | + + + +---------+ | 2025-01-02 00:00 | height_standard | 66 | in | + + + +---------+ | 2025-01-02 00:00 | o2_saturation | 97 | % | + + + +---------+ | 2025-01-02 00:00 | respiration_rate | 18 | /min | + + + +---------+ | 2025-01-02 00:00 | | 98.3 | F | | | temperature_standar | | | | | d | | | + + + +---------+ | 2025-01-02 00:00 | weight_metric | 74.199 | kg | + + + +---------+ | 2025-01-02 00:00 | weight_standard | 163.581 | lb | + + + +---------+"
[~2025-01-17 22:01] MED LIST changes: +TREXALL15 MG PO
--- OUTSIDE RECORDS SUMMARY | 2025-01-17 22:05 | XMS ---
PreManage Notification: ZITA REID Security Advertising Executive Events No recent Security Events currently on file CRITERIA MET - [facility] - 2 Visits in 30 Days CARE PROVIDERS ALLEN [facility] 01/26/2021-Current PHONE: Unknown KENJI WHEELER Physician Organic Chemistry Teacher 04/10/2018-Current PHONE: [phone] -[facility] Dentist: English Tutor [facility] PHONE: [phone] -[place]- Dentist: English Tutor [facility] PHONE: [phone] CARE, [facility]/Center: Multi-Specialty Current FAMILY PHONE: Unknown Fidelia has no Care Guidelines for this patient. Winifred VISIT COUNT (12 MO.) [address] [facility] [place] TOTAL 2 NOTE: Visits indicate total known visits. 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
[2025-01-17] MEDS ORDERED: SERTRALINE HCL25 MG PO (22:27)
[2025-01-17] MEDS ORDERED: NEURONTIN100 MG PO (22:28)
[2025-01-17 22:30] LABS: BASOPHILS 0.6 % (0.2-1.2); EOSINOPHILS 6.1 % (0.8-7.0); LYMPHOCYTES 39.2 % (21.8-53.1); MCH 32.1 PG (25.7-32.2); MCHC 33.2 g/dL (32.3-36.5); MCV 96.7 fL (79.0-92.2); MONOCYTES 9.8 % (5.3-12.2); NEUTROPHILS 44.2 % (34.0-67.9); RBC 4.27 M/uL (4.63-6.08)
[2025-01-17 22:49] LABS: ALT (SGPT) 40.0 U/L (14-59); AST (SGOT) 23.0 U/L (15-37); GLOMERULAR FILTRATION RATE,EST 99.0 mL/min (>60); PROTEIN, TOTAL 7.2 g/dL (6.4-8.2); UREA NITROGEN 17.0 mg/dL (7-18)
[2025-01-17 23:19] VITALS: BP 117/82
== END 2025-01-17 23:21 | disposition home or self-care (01) ==
LOC: ED 22:01
PROVIDERS: Emergency Medicine
DX: R00.2 Palpitations (principal); I10 Essential (primary) hypertension; J44.9 Chronic obstructive pulmonary disease, unspecified; J45.909 Unspecified asthma, uncomplicated
CPT/HCPCS: 36415; 80053; 83735; 84484; 85025; 93005; 93010; 99285